=== PATIENT | male | born 1980 | race Caucasian/White ===

== ENCOUNTER 2021-12-15 21:19 | Inpatient (IN) ==
[2021-12-16] MEDS ORDERED: *HR* LORazepam 2 MG/ML VIAL IVP PRN (00:22)
[2021-12-16] MEDS ORDERED: Naloxone 0.4 MG/ML INJ IVP PRN (00:24)
[2021-12-16] MEDS ORDERED: Acetaminophen 325 MG TABLET PO PRN (00:24)
[2021-12-16] MEDS ORDERED: Ondansetron 4 MG/2 ML VIAL IVP PRN (00:24)
[2021-12-16] MEDS ORDERED: 0.9 % Sodium Chloride 1,000 ML IVC SCH (00:30)
[2021-12-16] MEDS: *HR* LORazepam 2 MG/ML VIAL IVP PRN ×7 (00:36→21:55)
[2021-12-16] MEDS: Pantoprazole 40 MG VIAL IVP SCH (01:15)
[2021-12-16 03:55] LABS: Hematocrit 40.9 % (37.5-50.1); Hemoglobin 14.3 g/dL (12.9-16.9); Mean Corpuscular Hemoglobin 29.2 pg (28.0-33.3); Mean Corpuscular Volume 83.6 fL (83.0-100.0); Mean Platelet Volume 9.1 fL (9.4-12.4); Platelet Count 173 K/mcL (140-400); Red Blood Count 4.89 M/mcL (4.19-5.50); Red Cell Distribution Width 15.2 % (11.5-14.5); White Blood Count 6.7 K/mcL (4.3-11.1)
[2021-12-16 04:15] LABS: BUN/Creatinine Ratio 13 (6-26); Blood Urea Nitrogen 11 mg/dL (6-20); Calcium 8.2 mg/dL (8.6-10.3); Carbon Dioxide 23 mEq/L (23-29); Chloride 103 mEq/L (98-107); Glucose 83 mg/dL (70-105); Osmolality,Calculated 279 (280-300); Potassium 3.9 mEq/L (3.5-5.1); Sodium 135 mEq/L (136-145); eGFR For African Americans > 60 (> 60); eGFR For Non-African Americans > 60 (> 60)
[2021-12-16] MEDS: Multivit/Ca/Min/Fe/FA 1 TAB TABLET PO SCH (08:23)
[2021-12-16 09:04] LABS: Magnesium 1.8 mg/dL (1.6-2.6); Phosphorous 3.6 mg/dL (2.7-4.5)
[2021-12-16] MEDS: Thiamine (B-1) 100 MG in 0.9 % Sodium Chloride 50 ML IVPB SCH (11:07)
[2021-12-16] MEDS: Folic Acid 1 MG in 0.9 % Sodium Chloride 50 ML IVPB SCH (11:07)
[2021-12-16] MEDS ORDERED: Thiamine (B-1) 100 MG, Folic Acid 1 MG, MVI, adult with vitamin K 10 ML in 0.9 % Sodi... IVPB SCH (18:00)
[2021-12-16] MEDS: *HR* Heparin 5,000 UNIT/ML VIAL SQ SCH (18:03)
[2021-12-17] MEDS: *HR* LORazepam 2 MG/ML VIAL IVP PRN ×2 (02:09→06:14)
[2021-12-17] MEDS: *HR* Heparin 5,000 UNIT/ML VIAL SQ SCH ×2 (06:14→16:49)
[2021-12-17] MEDS: Multivit/Ca/Min/Fe/FA 1 TAB TABLET PO SCH (08:40)
[2021-12-17] MEDS: Pantoprazole 40 MG VIAL IVP SCH (08:41)
[2021-12-17] MEDS: Folic Acid 1 MG in 0.9 % Sodium Chloride 50 ML IVPB SCH (08:43)
[2021-12-17] MEDS: Thiamine (B-1) 100 MG in 0.9 % Sodium Chloride 50 ML IVPB SCH (08:45)
[2021-12-17 09:23] LABS: BUN/Creatinine Ratio 17 (6-26); Blood Urea Nitrogen 13 mg/dL (6-20); Calcium 8.9 mg/dL (8.6-10.3); Carbon Dioxide 21 mEq/L (23-29); Chloride 106 mEq/L (98-107); Glucose 95 mg/dL (70-105); Magnesium 1.9 mg/dL (1.6-2.6); Osmolality,Calculated 280 (280-300); Phosphorous 3.2 mg/dL (2.7-4.5); Potassium 3.8 mEq/L (3.5-5.1); Sodium 135 mEq/L (136-145); eGFR For African Americans > 60 (> 60); eGFR For Non-African Americans > 60 (> 60)
[2021-12-17 09:36] LABS: Basophils % 0.2 %; Eosinophils # 0.2 K/mcL (0.0-0.6); Eosinophils % 2.2 %; Hemoglobin 14.9 g/dL (12.9-16.9); Immature Granulocytes % 0.5 % (0-4); Lymphocytes # 2.2 K/mcL (0.6-4.6); Lymphocytes % 26.2 %; Mean Corpuscular HGB Conc 34.7 g/dL (31.6-35.5); Mean Corpuscular Hemoglobin 29.2 pg (28.0-33.3); Mean Corpuscular Volume 84.3 fL (83.0-100.0); Mean Platelet Volume 9.5 fL (9.4-12.4); Monocytes # 0.7 K/mcL (0.0-1.3); Monocytes % 8.5 %; Neutrophils # 5.2 K/mcL (1.6-8.9); Platelet Count 175 K/mcL (140-400); Segmented Neutrophils % 62.4 %; White Blood Count 8.4 K/mcL (4.3-11.1)
[2021-12-17] MEDS ORDERED: *HR* LORazepam 1 MG TABLET PO PRN (10:15)
[2021-12-17] MEDS: *HR* LORazepam 1 MG TABLET PO PRN ×5 (11:19→23:04)
[2021-12-18] MEDS: *HR* LORazepam 1 MG TABLET PO PRN ×5 (01:44→20:46)
[2021-12-18] MEDS: *HR* Heparin 5,000 UNIT/ML VIAL SQ SCH ×2 (05:54→18:45)
[2021-12-18] MEDS: Pantoprazole 40 MG VIAL IVP SCH (08:31)
[2021-12-18] MEDS: Multivit/Ca/Min/Fe/FA 1 TAB TABLET PO SCH (08:31)
[2021-12-18] MEDS: Thiamine (B-1) 100 MG in 0.9 % Sodium Chloride 50 ML IVPB SCH (08:32)
[2021-12-18] MEDS: Folic Acid 1 MG in 0.9 % Sodium Chloride 50 ML IVPB SCH (08:32)
[2021-12-19] MEDS: *HR* LORazepam 1 MG TABLET PO PRN ×2 (01:31→06:10)
[2021-12-19 03:13] VITALS: TEMP 97.5
[2021-12-19] MEDS: *HR* Heparin 5,000 UNIT/ML VIAL SQ SCH (06:04)
[2021-12-19 07:00] VITALS: BP 111/73; PULSE 97; O2SAT 94
[2021-12-19] MEDS: Pantoprazole 40 MG VIAL IVP SCH (09:36)
[2021-12-19] MEDS: Multivit/Ca/Min/Fe/FA 1 TAB TABLET PO SCH (09:36)
== END 2021-12-19 11:10 | disposition home or self-care (01) | DRG 775 ==
LOC: 3BNU → SUATTDRO 23:34
PROVIDERS: ADMIT Internal Medicine; ATTEND Internal Medicine